=== PATIENT | male | born 1985 | race Caucasian/White ===

== ENCOUNTER 2018-06-16 07:07 | Day surgery (SDC) | payer OTHER ==
[2018-06-16 07:51] VITALS: BMI 32.9
[2018-06-16 08:05] VITALS: RESP 19; TEMP 99.1; O2SAT 100
[2018-06-16] MEDS ORDERED: Propofol 10 mg/ml Inj (20 ML) ONE ×2 (08:51→09:10)
--- NOTE | 2018-06-16 09:02 | CP.SDSHP ---
Same Day Surgery H & P - History Proposed Procedure: EGD Pre-Op Diagnosis: SEE NOTES - Previous Medical/Surgical History Endocrine/Metabolic: Other Misc: Other Pain: 4.Moderate Pain - Allergies Allergies: Allergies No Known Allergies Allergy (Verified 06/16/18 07:39) - Physical Exam General Appearance: N Vital Signs: Vital Signs 06/16/18 07:45 Temperature 99.1 F Pulse Rate 61 Respiratory 19 Rate Blood Pressure 128/79 O2 Sat by Pulse 100 Oximetry Mental Status: Alert & Oriented x3 Neuro: WNL Heart: WNL Lungs: WNL GI: Other - {Optional Preform as Required} Breast: WNL Abdomen: Other Rectal: Other Integument: WNL : WNL Ortho: WNL ENT: WNL - Impression Pt. Evaluated Today:Candidate for Anesthesia & Procedure: Yes - Date & Time Time: 09:02 Short Stay Discharge - Short Stay Discharge Admitting Diagnosis/Reason for Visit: FUNCTIONAL DYSPEPSIA Disposition: HOME/ ROUTINE
[2018-06-16] MEDS ORDERED: Belladonna-Phenobarbital PO STA (09:03)
[2018-06-16 09:10] VITALS: PULSE 84
[2018-06-16 09:52] VITALS: BP 135/67
== END 2018-06-16 10:10 | disposition home or self-care (01) ==
LOC: C.ENDO 07:07
PROVIDERS: ATTEND Specialist
DX: K21.0 Gastro-esophageal reflux disease with esophagitis (principal); K29.00 Acute gastritis without bleeding; K31.84 Gastroparesis; B96.81 Helicobacter pylori [H. pylori] as the cause of diseases classified elsewhere
CPT/HCPCS: 43239; 88305; J2001; J2704; J2765